=== PATIENT | female | born 1985 | race Caucasian/White ===

== ENCOUNTER → 2017-10-30 | Outpatient (CLI) | payer OTHER | LOC: COL.VAS 09:54 | DX: I34.0 Nonrheumatic mitral (valve) insufficiency (principal) ==

== ENCOUNTER → 2017-12-01 | Outpatient (CLI) | payer OTHER | LOC: COL.RAD 12:18 | DX: I26.99 Other pulmonary embolism without acute cor pulmonale (principal); R07.89 Other chest pain | CPT/HCPCS: A9539; A9540 ==

== ENCOUNTER → 2019-02-24 | Outpatient (CLI) | payer OTHER | LOC: COL.LAB 16:26 | DX: I27.82 Chronic pulmonary embolism (principal) ==

== ENCOUNTER → 2020-01-24 | Outpatient (CLI) | payer OTHER | LOC: COL.VAS 09:16 | DX: I26.99 Other pulmonary embolism without acute cor pulmonale (principal) ==